=== PATIENT | male | born 1960 ===

== ENCOUNTER 2017-08-30 17:01 | Emergency (ER) | payer SELFPAY ==
[2017-08-30 17:09] VITALS: BP 191/98; PULSE 71; RESP 20; TEMP 98.4; O2SAT 97
--- NOTE | 2017-08-30 17:36 | C.PDOC ---
History Of Present Illness 56 year old male with no significant PMHx presents to the ED with complaints of laceration to forehead, sustained with metal hook of belt, just prior to arrival. Patient notes tetanus is up to date. Patient denies headache, LOC, nausea, vomiting, other injuries, or other complaints at this time. Time Seen by Provider: 08/30/17 17:26 Chief Complaint (Nursing): Abnormal Skin Integrity History Per: Patient History/Exam Limitations: no limitations Onset/Duration Of Symptoms: Hrs Current Symptoms Are (Timing): Still Present Location Of Injury: Anterior: Face (forehead) Quality Of Symptoms: Other (laceration ) Recent travel outside of the [place]: No Past Medical History Reviewed: Historical Data, Nursing Documentation, Vital Signs Vital Signs: Last Vital Signs Temp 98.4 F 08/30/17 17:08 Pulse 71 08/30/17 17:08 Resp 20 08/30/17 17:08 BP 191/98 H 08/30/17 17:08 Pulse Ox 97 08/30/17 17:58 - Medical History PMH: HTN Family History: States: Unknown Family Hx - Social History Hx Alcohol Use: No Hx Substance Use: No - Immunization History Hx Tetanus Toxoid Vaccination: Yes Hx Influenza Vaccination: No Hx Pneumococcal Vaccination: No Review Of Systems Constitutional: Negative for: Fever, Chills Gastrointestinal: Negative for: Nausea, Vomiting Skin: Positive for: Other (laceration to forehead) Physical Exam - Physical Exam Appears: Non-toxic, No Acute Distress Skin: Warm, Dry, No Rash, Other (2 cm laceration to forehead) Head: No Swelling, Laceration (2 cm laceration to forehead) Eye(s): bilateral: Normal Inspection, PERRL, EOMI Oral Mucosa: Moist Neck: Supple Cardiovascular: Rhythm Regular, No Murmur Respiratory: No Rales, No Rhonchi, No Wheezing, Other (clear to auscultation bilaterally ) Neurological/Psych: Oriented x3 ED Course And Treatment O2 Sat by Pulse Oximetry: 97 (RA) Pulse Ox Interpretation: Normal Medical Decision Making Medical Decision Making: dermabond applied. Disposition - Disposition Disposition: HOME/ ROUTINE Disposition Time: 17:57 Condition: STABLE Additional Instructions: follow up with your doctor/clinic. return to er with worsening symptoms or concerns. Instructions: Laceration (ED), Head Injury (ED), Skin Adhesive Care (ED) Forms: [facility] (Micronesian) - Clinical Impression Clinical Impression: Laceration, Head injury - Scribe Statement The provider has reviewed the documentation as recorded by the Scribelle Kasper All medical record entries made by the Scribe were at my direction and personally dictated by me. I have reviewed the chart and agree that the record accurately reflects my personal performance of the history, physical exam, medical decision making, and the department course for this patient. I have also personally directed, reviewed, and agree with the discharge instructions and disposition.
== END 2017-08-30 18:31 | disposition home or self-care (01) ==
LOC: C.ER 17:01
DX: S01.81XA Laceration without foreign body of other part of head, initial encounter (principal); W45.8XXA Other foreign body or object entering through skin, initial encounter